=== PATIENT | male | born 2000 | race Caucasian/White ===

== ENCOUNTER 2025-06-16 03:09 | Emergency (ER) | payer SELFPAY ==
[2025-06-16 03:09] VITALS: BP 137/85; PULSE 107; RESP 18; TEMP 37.1; O2SAT 99; BMI 27.6
--- NOTE | 2025-06-16 03:21 | EKG12_ITS ---
Test Reason : CP Blood Pressure : */* mmHG Vent. Rate : 98 BPM Atrial Rate : 98 BPM P-R Int : 156 ms QRS Dur : 86 ms QT Int : 338 ms P-R-T Axes : 46 58 22 degrees QTcB Int : 431 ms Normal sinus rhythm Normal ECG Confirmed by AUSTIN VELASQUEZ, SCOTTY ([id number]), managing editor JÚNIOR SESAY ([id number]) on 06/18/2025 9:01:42 AM Referred By: PATRICIA Confirmed By: SCOTTY AVILA MD
--- NOTE | 2025-06-16 03:48 | EX.ED.DYSGE1 ---
HPI History of Present Illness Chief Complaint: Chest Pain Informant: patient, parent and EMS Narrative Narrative: Patient is a 25-year-old male with past medical history of anxiety and depression. He states he was getting ready to go to bed this evening when he noticed pain/pressure in his left chest region. He states there was no associated nausea vomiting diaphoresis or shortness of breath. He states his older brother does have a history of SVT and that his maternal grandfather had a heart attack at age 26. He states when he developed his discomfort he thought of his brother and grandfather and he was concerned that his symptoms could be cardiac in nature and therefore EMS was called. Patient states there is been no recent trauma or excessive activity. He denies being sick such as cough or congestion. He states there is been no recent travel or surgery and denies any history of DVT/PE. He also denies any illicit drug use. However because of the chest pain and concern this could be cardiac he presents for evaluation [facility] Medical History Depression Anxiety Home Medications ?Medication ?Instructions ?Recorded ?Last Taken ?Type NK 06/16/25 Unknown History Allergy/AdvReac Type Severity Reaction Status Date / Time No Known Allergies Allergy Verified 06/16/25 03:10 Social History Smoking Status: Never smoker ROS ROS ED Constitutional Constitutional ED: Denies chills or fever(s) Eyes Eyes: Denies change in vision ENT ENT ED: Denies sore throat Cardiovascular Cardiovascular: Reports chest pain; Denies palpitations or racing heartbeat Respiratory/Chest Respiratory/Chest: Denies cough or dyspnea Gastrointestinal Gastrointestinal: Denies abdominal pain, diarrhea, nausea or vomiting Musculoskeletal Musculoskeletal: Denies back pain Integumentary Denies rash Neurologic Neurologic: Denies headache(s) Hematologic/Lymphatic Hematologic/Lymphatic: Denies easy bleeding or easy bruising EXAM Physical Exam Const Vital Signs: 06/16/25 03:09 06/16/25 04:00 Temperature 98.7 F Temperature Source Oral Pulse Rate 107 H 83 Respiratory Rate 18 18 Blood Pressure 137/85 H 120/78 Blood Pressure Mean 102 92 Pulse Ox 99 98 Oxygen Delivery Method Room Air Positive well nourished and well developed General Appearance ED: well developed; Negative for pallor HEENT HEENT Narrative: Normocephalic atraumatic Eyes PERRL and EOMs intact bilaterally General Eye ED: Negative for scleral icterus Neck supple and no JVD Chest Wall palpation of chest normal Chest Narrative: No bony deformity or subcutaneous emphysema Resp normal respiratory effort and clear to auscultation bilaterally Cardio regular rhythm Rate: tachycardic and other Other Details: Slightly tachycardic rate with regular rhythm No murmurs rubs or gallops Radial and carotid pulses are equal and symmetric GI normal to inspection, nondistended, normoactive bowel sounds, non-tender, non-distended and no masses GI Narrative: No voluntary guarding or rigidity or pulsatile mass Auscultation: normoactive bowel sounds Palpation: soft Extremity normal to inspection Extremity Narrative: No asymmetric edema no pitting edema negative Homans' sign bilaterally Neuro oriented x3, CN's II-XII intact bilaterally and no sensory deficits noted Sensorium / Orientation: alert Motor Exam: strength 5/5 throughout Psych Mood & Affect: anxious Skin no rashes or lesions noted and no wounds General Skin Exam: Negative for jaundice or pallor MDM MDM MDM Narrative Medical decision making narrative: Patient arrived to ER slightly tachycardic but otherwise with stable vital. He is low risk for acute coronary syndrome but as he has a grandfather who reported he had a heart attack at the same age and a brother who has a history of abnormal cardiac rhythm I did elect to perform a basic cardiac workup. Patient's EKG was technically normal sinus without ischemia or dysrhythmia changes. He was kept on the night monitor and there was no cardiac dysrhythmia noted while in the ER. Chest x-ray revealed no acute lung pathology as a potential cause for his chest pain as there was no pneumonia or pneumothorax. He did not have pain in the upper abdomen indicating that the chest discomfort could have been pancreatitis or biliary colic. The patient's troponin was less than 6 going against acute coronary syndrome and his D-dimer was less than 0.27 going against pulmonary embolus or dissection. On reevaluation the patient is resting comfortably and reports feeling better. He is low risk for acute coronary syndrome and has a negative workup and therefore there is no need for further evaluation or intervention and he is otherwise safe for discharge. History & Record Review Discussion w/independent historian: Patient and Family Lab Data Attestation: I reviewed the patient's lab results. Labs: Laboratory Results - last 24 hr 06/16/25 03:05 WBC 12.9 H RBC 5.04 Hgb 14.5 Hct 44.2 MCV 87.7 MCH 28.8 MCHC 32.8 RDW Std Deviation 39.1 RDW Coeff of Pasquale 12.1 Plt Count 287 MPV 10.8 Immature Gran % (Auto) 0.600 Neut % (Auto) 58.4 Lymph % (Auto) 29.6 Walsh % (Auto) 7.8 Eos % (Auto) 3.0 Baso % (Auto) 0.6 Absolute Neuts (auto) 7.5 Absolute Lymphs (auto) 3.81 Nucleated RBC % 0 D-Dimer Quant (PE/DVT) < 0.27 L Sodium 143 Potassium 3.5 Chloride 103 Carbon Dioxide 24.2 Anion Gap 15 BUN 13 Creatinine 1.01 Estim Creat Clear Calc 121.65 Est GFR (MDRD) Non-Af 105 BUN/Creatinine Ratio 12.5 Glucose 104 H Calcium 9.4 Magnesium 2.1 Troponin T High Sens < 6 Radiography Diagnostic Testing: Clinical Impression(s) from Imaging Studies Chest X-Ray 06/16/25 03:55 IMPRESSION: No acute chest findings. Reading Location: [place] [id number] Chest x-ray as interpreted by the emergency medicine physician reveals no acute infiltrate pneumothorax pleural effusion or widened mediastinum Discharge Plan Triage Chief Complaint: Chest Pain ED Provider: Umang Joseph Dx/Rx/DC Orders Clinical Impression: Nonspecific chest pain, Anxiety and depression Instructions: ED Chest Pain, Uncertain Cause Prescriptions: No Action NK Primary Care Provider: LACY SOTELO Referrals: Care Physician,No Primary [Non-Staff] - Activity Restrictions/Additional Instructions: Your workup today showed no signs of acute/active heart damage. Your blood test for potential blood clot or dissection was normal as well. There is no abnormal heart rhythm while you are in the ER either. Please follow-up with your family doctor to discuss need for a Holter monitor and/or further cardiac testing such as a stress test and echo if symptoms persist. Return to the ER should you have any further concerns Print Language: Bhutanese Disposition Disposition: Home, Self Care
[2025-06-16 03:51] LABS: Hematocrit 44.2 % (40-54); Hemoglobin 14.5 g/dL (13.0-16.5); Immature Granulocytes Count 0.080 X10^3/uL (0.0-0.0); Mean Corp Hgb Conc 32.8 g/dL (32-36); Mean Corpuscular Volume 87.7 fL (80-94); Mean Platelet Vol. 10.8 fl (6.2-12.0); NRBC Flagged by Analyzer 0 % (0-5); Platelet Count 287 K/mm3 (150-450); RBC Distribution Width CV 12.1 % (11.6-14.6); RBC Distribution Width SD 39.1 fl (35.1-43.9); Red Blood Count 5.04 M/mm3 (4.6-6.2); White Blood Count 12.9 K/mm3 (4.4-11.0)
--- NOTE | 2025-06-16 03:55 | RAD_ITS ---
PROCEDURE: CHEST PA AND LATERAL 06/16/2025 REASON FOR EXAM: CHEST PAIN TECHNIQUE: CHEST PA AND LATERAL COMPARISON: No FINDINGS: Prominent fat pads. Normal heart size. Mild scoliosis. Left base linear scar/atelectasis. Otherwise well inflated lungs. RAD/Chest PA and Lateral IMPRESSION: No acute chest findings. Reading Location: [facility]
[2025-06-16 04:00] VITALS: BP 120/78; PULSE 83; RESP 18; O2SAT 98
[2025-06-16 04:05] LABS: D-Dimer Quantitative (DVT/PE) < 0.27 FEU/ug/m (0.27-0.49)
[2025-06-16 04:19] LABS: Anion Gap 15 (5-15); BUN 13 mg/dL (4-19); BUN/Creat Ratio 12.5 RATIO (10-20); Calcium,Total 9.4 mg/dL (7.6-11.0); Carbon Dioxide 24.2 mmol/L (21.0-32.0); Chloride 103 mmol/L (98-108); Estimated Creatinine Clearance 121.65 ml/min (50-250); Glucose 104 mg/dL (70-99); Magnesium 2.1 mg/dL (1.5-2.2); Potassium 3.5 mmol/L (3.3-5.1); Troponin T High Sensitivity < 6 ng/L (<=22)
[2025-06-16 04:36] VITALS: BP 129/82; PULSE 88; RESP 16; TEMP 36.6; O2SAT 96
== END 2025-06-16 04:40 | disposition home or self-care (01) ==
PROVIDERS: Emergency Provider Emergency Medicine; Visit Provider Emergency Medicine
DX: R07.9 Chest pain, unspecified (principal); F32.A Depression, unspecified; F41.9 Anxiety disorder, unspecified
CPT/HCPCS: 71046; 80048; 83735; 84484; 85025; 85379; 93005; 99283; A4216